=== PATIENT | female | born 1935 | race American Indian/Alaskan Native ===

== ENCOUNTER 2016-11-04 11:11 | Inpatient (IN) | payer MEDICARE ==
[2016-11-04 11:48] LABS: Basophils % (Auto) 1.7 % (0.0-1.8); Eosinophils % (Auto) 8.1 % (0.0-4.3); Hematocrit 31.1 % (30.3-42.9); Hemoglobin 9.7 gm/dl (10.1-14.3); Mean Corpuscular HGB Conc 31 % (30-34); Mean Corpuscular Hemoglobin 24 pg (28-32); Mean Corpuscular Volume 76 fl (79-97); Platelet Count 223 K/mm3 (140-440); Red Blood Count 4.08 M/mm3 (3.65-5.03); Red Cell Distribution Width 17.9 % (13.2-15.2); White Blood Count 5.3 K/mm3 (4.5-11.0)
[2016-11-04 12:01] LABS: Anion Gap 16 mmol/L; BUN/Creatinine Ratio 11.66; Blood Urea Nitrogen 14 mg/dL (7-17); Calcium 8.7 mg/dL (8.4-10.2); Carbon Dioxide 27 mmol/L (22-30); Chloride 100.3 mmol/L (98-107); Glucose 128 mg/dL (65-100); Potassium 3.6 mmol/L (3.6-5.0); Sodium 140 mmol/L (137-145)
[2016-11-04] MEDS ORDERED: NACL 0.9% 1000 ML 1,000 ML ONE (12:46)
--- NOTE | 2016-11-04 13:29 | Emergency Department Report ---
HPI - General Chief Complaint: Dyspnea/Respdistress Time Seen by Provider: 11/04/16 12:50 - HPI HPI: Chief complaint: Patient complains of 2-3 days of dizziness on standing and heart racing. HPI: Patient states sometimes she is sweating and shortness of breath when her heart is racing. Patient states sometimes it's when she is up and moving around and sometimes it's when she is laying in bed at night. Patient states it usually last from 5-6 minutes but last night it was much worse and lasted longer. Patient's had a history of partial colectomy and anemia requiring transfusion. Patient takes an 81 mg aspirin a day and also takes some over-the- counter iron medications. Patient states she's had some black stools. Patient has a history of hypertension but no diabetes or smoking , history of coronary disease or recent travel or recent surgery. Mode of arrival: [private car] Source: [Patient] [old chart] Began: 3 days ago Duration: Intermittent Context: Patient denies any history of coronary artery disease Quality: Pain-free Severity: 0 out of 10 Improved with: See above Worsened with: See above Associated signs and symptoms: See above ED Past Medical Hx - Past Medical History Previous Medical History?: Yes Hx Hypertension: Yes Hx Diabetes: Yes (DIET CONTROL) Additional medical history: ANEMIA - Surgical History Past Surgical History?: Yes Additional Surgical History: COLON RESECTION (MULT POLYPS/BLEEDING) - Social History Smoking Status: Never Smoker Substance Use Type: Prescribed - Medications Home Medications: Home Medications Medication Instructions Recorded Confirmed Last Taken Type Diltiazem HCl [Diltiazem ER] 120 mg PO DAILY 11/04/16 11/04/16 11/03/16 History Triamter/Hctz 37.5-25 mg 1 tab PO QDAY 11/04/16 11/04/16 11/03/16 History [Maxzide-25] ED Review of Systems ROS: Stated complaint: SOB/DIZZINESS Other details as noted in HPI ROS Constitutional: No fever ENT: No uri symptoms Cardiovascular: No chest pain Respiratory: No cough GI: No nausea vomiting or diarrhea : No dysuria frequency or urgency, Skin: No rash Neuro: No focal weakness or numbness Psych: No depression Bridger/lymph: No edema Physical Exam - Physical Exam Vital Signs: Vital Signs 11/04/16 11:29 Temperature 98.3 F Pulse Rate 61 Respiratory 20 Rate Blood Pressure 142/67 O2 Sat by Pulse 100 Oximetry Physical Exam: GENERAL: The patient is well-developed well-nourished. HEENT: Normocephalic. Atraumatic. Extraocular motions are intact. Patient has moist mucous membranes. NECK: Supple. No meningitic signs are noted. There is no adenopathy noted. CHEST/LUNGS: Clear to auscultation. There is no respiratory distress noted. HEART/CARDIOVASCULAR: Regular. There is no tachycardia. There is no gallop rub or murmur. ABDOMEN: Abdomen is soft, nontender. Patient has normal bowel sounds. There is no abdominal distention. Rectal exam shows scant amount of stool which is guaiac positive. SKIN: There is no rash. There is no edema. There is no diaphoresis. NEURO: The patient is awake, alert, and oriented. The patient is cooperative. The patient has no focal neurologic deficits. The patient has normal speech. MUSCULOSKELETAL: There is no tenderness or deformity. There is no limitation range of motion. There is no evidence of acute injury. ED Course Vital Signs 11/04/16 11:29 Temperature 98.3 F Pulse Rate 61 Respiratory 20 Rate Blood Pressure 142/67 O2 Sat by Pulse 100 Oximetry ED Medical Decision Making - Lab Data Result diagrams: 11/04/16 11:39 11/04/16 11:39 Laboratory Tests 11/04/16 11:39 Calcium 8.7 Troponin T < 0.010 - EKG Data -: EKG Interpreted by Me EKG shows normal: sinus rhythm Rate: normal (62) - EKG Data When compared to previous EKG there are: no significant change - Radiology Data Radiology results: report reviewed (NAP) Critical care attestation.: If time is entered above; I have spent that time in minutes in the direct care of this critically ill patient, excluding procedure time. ED Disposition Clinical Impression: GI bleed Qualifiers: GI bleed type/associated pathology: melena Qualified Code(s): K92.1 - Melena Disposition: OP ADMITTED IP TO THIS HOSP Is pt being admited?: Yes Does the pt Need Aspirin: No Condition: Fair Referrals: JOELLE MEZA [Other] - 3-5 Days Time of Disposition: 13:31 (admit to the hospitalist)
--- NOTE | 2016-11-04 13:33 | Admit Criteria Form ---
Admission Criteria Documentation: GASTROINTESTINAL BLEEDING Clinical Indications for Inpatient Care (Place 'X' for any and all applicable criteria): Ongoing inpatient care may be indicated for gastrointestinal bleeding with ANY ONE of the following (4)(20)(21)(22)(23)(24): [ ]I. Active bleeding (eg, fresh voluminous blood in emesis or nasogastric aspirate, or per rectum) [ ]II. Hemodynamic instability [ ]III. Anticoagulation therapy or coagulopathy ((eg, advanced liver disease, irreversible anticoagulation) [ ]IV. Ischemic colitis (22) [ ]V. Endoscopy showing arterial bleeding, adherent clot, nonbleeding visible vessel, varices, flat red spots, ulcer size greater than 2 cm, or portal hypertensive gastropathy [ ]. High-risk low platelet count [X ]VII. Anemia requiring inpatient care as indicated by ANY ONE of the following a)[ ] Cognitive impairment b)[ ] Syncope c)[ ] Heart failure d)[ ] Chest pain e)[X ] Dyspnea f)[ ] Other findings suggesting inadequate perfusion (eg, peripheral or myocardial ischemia, end organ dysfunction) [ ]VIII. High-risk low platelet count [ ]IX. Suspected variceal cause of bleeding as indicated by ANY ONE of the following(27)(28): a)[ ] Known varices b)[ ] Hepatomegaly or splenomegaly c)[ ] Ascites d)[ ] Jaundice or scleral icterus e)[ ] History of liver disease (eg, cirrhosis) f)[ ] Physical findings of portal hypertension (eg, caput medusa) g)[ ] Comorbid disorder indicating risk for portal vein thrombosis (eg , abdominal surgery, sepsis, shock, exchange transfusion, prior umbilical vein catheterization) Extended stay may be needed until ALL of the following are present(20)(38)(47): [ ]a) Hemodynamic stability [ ]b) No evidence of active bleeding (eg, stable Hematocrit) [ ]c) Platelet count, prothrombin time, and partial thromboplastin time acceptable for next level of care [ ]d) Surgical or other acute intervention not needed [ ]e) Oral hydration and diet tolerated The original [facility] [employer] content created by Chris Best has been revised. The portions of the content which have been revised are identified through the use of italic text or in bold, and Chris Best has neither reviewed nor approved the modified material. All other unmodified content is copyright [facility]. Please see references footnoted in the original [facility] edition 2016 Admission Criteria Met: Yes
--- NOTE | 2016-11-04 14:24 | XRay Report ---
ROUTINE CHEST, TWO VIEWS: HISTORY: Shortness of breath. The trachea, heart, mediastinal contour, lung wood and bony thorax are unremarkable. IMPRESSION: Unremarkable chest x-ray.
--- NOTE | 2016-11-04 21:04 | Event Note ---
Date: 11/04/16 See H/p in reports GI Bleed
[2016-11-04] MEDS ORDERED: TYLENOL PO PRN (21:05)
[2016-11-04] MEDS ORDERED: DILAUDID IV PRN (21:05)
[2016-11-04] MEDS ORDERED: MILK OF MAGNESIA PO PRN (21:05)
[2016-11-04] MEDS ORDERED: ZOFRAN IV PRN (21:05)
[2016-11-04] MEDS ORDERED: DULCOLAX PR PRN (21:05)
[2016-11-04] MEDS ORDERED: DILTIAZEM HCL 120 MG PO SCH (21:15)
[2016-11-04] MEDS ORDERED: D5/0.45NS 1,000 ML IV SCH (22:00)
[2016-11-04 22:13] LABS: Hematocrit 30.7 % (30.3-42.9); Hemoglobin 9.6 gm/dl (10.1-14.3)
[2016-11-05] MEDS: PROTONIX 80 MG in NACL 0.9% 100 ML IV SCH ×2 (00:06→10:12)
[2016-11-05] MEDS: MAXZIDE-25 PO SCH ×2 (00:06→15:08)
[2016-11-05 05:42] LABS: Basophils % (Auto) 1.8 % (0.0-1.8); Eosinophils % (Auto) 8.2 % (0.0-4.3); Hematocrit 29.2 % (30.3-42.9); Hemoglobin 9.3 gm/dl (10.1-14.3); Mean Corpuscular HGB Conc 32 % (30-34); Mean Corpuscular Hemoglobin 24 pg (28-32); Mean Corpuscular Volume 76 fl (79-97); Platelet Count 204 K/mm3 (140-440); Red Blood Count 3.85 M/mm3 (3.65-5.03); Red Cell Distribution Width 18.3 % (13.2-15.2); White Blood Count 5.8 K/mm3 (4.5-11.0)
[2016-11-05 06:03] LABS: Albumin 3.8 g/dL (3.9-5); Albumin/Globulin Ratio 1.4 %; Bilirubin,Total 0.3 mg/dL (0.1-1.2); Calcium 8.7 mg/dL (8.4-10.2); Chloride 100.7 mmol/L (98-107); Potassium 3.2 mmol/L (3.6-5.0); Total Protein 6.6 g/dL (6.3-8.2)
--- NOTE | 2016-11-05 08:47 | Gastroenterology Consultation ---
History of Present Illness - Reason for Consult Consult date: 11/05/16 anemia, guaiac positive stool - History of Present Illness Ms. Maguire is an 81 y/o female admitted with reports of a 3 day hx of weakness, dizziness and palpitations. She reports she has had black stools only since starting her OTC PO iron and B 12. She has a hx of chronic anemia and has been seen in the past by Dr. Grey in [place]. 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 She was last seen by Dr. Grey in 2013. Her H/H is stable and she has been significantly lower in past admissions and documented in clinic charting. She denies abdominal pain or N/ V. No hematochezia. She takes a daily baby ASA. Past History Past Medical History: anemia, diabetes, hypertension Past Surgical History: bowel surgery (colectomy 2/2 diverticular bleeding), Other Social history: denies: smoking Family history: no significant family history Medications and Allergies Allergies Allergy/AdvReac Type Severity Reaction Status Date / Time caffeine AdvReac Unknown Verified 09/11/16 14:31 codeine AdvReac HALLUCINATI Verified 09/11/16 14:31 ONS Home Medications Medication Instructions Recorded Confirmed Last Taken Type Diltiazem HCl [Diltiazem ER] 120 mg PO DAILY 11/04/16 11/04/16 11/03/16 History Triamter/Hctz 37.5-25 mg 1 tab PO QDAY 11/04/16 11/04/16 11/03/16 History [Maxzide-25] Active Meds: Active Medications Acetaminophen (Tylenol) 650 mg PO Q4H PRN PRN Reason: Pain MILD(1-3)/Fever >100.5/GR Bisacodyl (Dulcolax) 10 mg MA QDAY PRN PRN Reason: Constipation unrelieved by MOM Diltiazem HCl (Cardizem Cd) 120 mg PO DAILY LILA Hydromorphone HCl (Dilaudid) 0.5 mg IV Q3H PRN PRN Reason: Pain , Severe (7-10) Dextrose/Sodium Chloride (D5/0.45ns) 1,000 mls @ 75 mls/hr IV DIRECT LILA Last Admin: 11/05/16 00:05 Dose: 75 mls/hr Pantoprazole Sodium 80 mg/ (Sodium Chloride) 100 mls @ 10 mls/hr IV Q10H LILA PRN Reason: 8 MG/HR Last Admin: 11/05/16 00:06 Dose: 8 mg/hr, 10 mls/hr Potassium Chloride (Kcl 10meq/100ml) 10 meq in 100 mls @ 100 mls/hr IV Q1H LILA Stop: 11/05/16 11:59 Magnesium Hydroxide (Milk Of Magnesia) 30 ml PO Q4H PRN PRN Reason: Constipation Ondansetron HCl (Zofran) 4 mg IV Q8H PRN PRN Reason: N/V unrelieved by Reglan Triamterene/HCTZ (Maxzide-25) 1 each PO QDAY [facility] Last Admin: 11/05/16 00:06 Dose: 1 each Review of Systems - Review of Systems Constitutional: weakness Cardiovascular: palpitations Neurological: weakness Exam - Constitutional Vital Signs: Temp Pulse Resp BP Pulse Ox 98 F 60 16 144/76 99 11/05/16 08:00 11/05/16 08:00 11/05/16 08:00 11/05/16 08:00 11/05/16 08:00 General appearance: no acute distress - EENT Eyes: EOM intact ENT: hearing intact - Neck Neck: supple - Respiratory Respiratory: bilateral: CTA - Cardiovascular Rhythm: regular Heart Sounds: Present: S1 & S2 Extremities: pulses intact, No edema - Gastrointestinal General gastrointestinal: Present: soft, non-tender, non-distended, normal bowel sounds - Integumentary Integumentary: Present: warm, dry - Neurologic Neurological: alert and oriented x3 - Psychiatric Psychiatric: appropriate mood/affect, cooperative - Labs CBC & Chem 7: 11/05/16 04:53 11/05/16 04:53 Lab Results: Laboratory Results - last 24 hr 11/04/16 11/05/16 11/05/16 21:35 04:53 04:53 WBC 5.8 RBC 3.85 Hgb 9.6 L 9.3 L Hct 30.7 29.2 L MCV 76 L MCH 24 L MCHC 32 RDW 18.3 H Plt Count 204 Lymph % (Auto) 36.6 H [place] % (Auto) 9.1 H Eos % (Auto) 8.2 H Baso % (Auto) 1.8 Lymph # 2.1 [place] # 0.5 Eos # 0.5 H Baso # 0.1 Seg Neutrophils % 44.3 Seg Neutrophils # 2.6 Sodium 141 Potassium 3.2 L Chloride 100.7 Carbon Dioxide 26 Anion Gap 18 BUN 11 Creatinine 1.1 Estimated GFR 58 BUN/Creatinine Ratio 10.00 Glucose 129 H Calcium 8.7 Total Bilirubin 0.3 AST 14 ALT 9 Alkaline Phosphatase 74 Total Protein 6.6 Albumin 3.8 L Albumin/Globulin Ratio 1.4 Assessment and Plan 1. Anemia -H/H stable. Patient has a long hx of chronic anemia and has underwent EGD./ Colonoscopy in the past as well as colectomy for diverticular bleeding. Her H/H has been significantly lower in the past requiring transfusion. Do not feel that her anemia is the cause of her symptoms regarding palpitations/ weakness. She has no abdominal pain or hematochezia. Noted guaiac positive. She has dark stools related to her PO iron intake. OK to DC per GI standpoint with follow up in office in 1-[address] Grey in our [place] Office. Ok to continue ASA if needed at this time. Advance diet.
--- NOTE | 2016-11-05 09:01 | History and Physical Report ---
CHIEF COMPLAINT: Lightheadedness and dizziness on standing for 2-3 days. HISTORY OF PRESENT ILLNESS: An 81-year-old female with history of hypertension, diabetes, and chronic anemia, comes in for lightheadedness and shortness of breath and palpitations for two to three days, especially more on standing. The patient has been noticing that she has been lightheaded and short of breath, especially when standing. Better on lying down. Usually it lasts 5-6 minutes. The patient has had a history of partial colectomy and anemia requiring transfusions. At takes aspirin 81 mg once a day. The patient also has some black stools. No hematemesis. No diarrhea. No vomiting. Her main concern is being lightheaded and shortness of breath on exertion. No fever, no chills. No recent travel. PAST MEDICAL HISTORY: Significant for hypertension, diabetes which is diet controlled, and anemia. PAST SURGICAL HISTORY: Colon resection secondary to multiple polyps bleeding. SOCIAL HISTORY: Does not smoke. No alcohol, no recreational drugs. CURRENT MEDICATIONS: Diltiazem 120 mg daily and Maxzide 25/37.5 mg once a day. REVIEW OF SYSTEMS: CONSTITUTIONAL: No weight loss, no weight gain. No fever, no chills. HEENT: No sore throat. No postnasal drip. No diplopia. No nasal regurgitation of fluids. RESPIRATORY: No wheezing, no cough. CARDIOVASCULAR: No chest pain, some palpitations and shortness of breath on exertion present. GASTROINTESTINAL: Black, red stools, melena. No hematemesis. GENITOURINARY: No dysuria, no flank pain. SKIN: No rashes. MUSCULOSKELETAL SYSTEM: No joint pains. No muscle pains. PSYCH: No depression. HEMATOLOGIC AND LYMPHATIC: No lymphedema, no bruising. PHYSICAL EXAMINATION: GENERAL: Elderly female lying in bed comfortably, in no distress. VITAL SIGNS: Temperature is 98.3, pulse is 61, respirations are 20 and blood pressure 142/67, sats 100%. HEENT: Unremarkable. Pupils equal and reactive. NECK: Supple, no lymphadenopathy, no thyromegaly. LUNGS: Clear to auscultation and percussion. Good air entry. CARDIOVASCULAR: S1, S2 heard. No gallop, no murmur, no rub. Apical impulse in left fifth intercostal space in midclavicular line. ABDOMEN: Soft and benign. No hepatosplenomegaly. No guarding, no rigidity. Hernial orifices are normal. EXTREMITIES: Good pedal pulses. No pedal edema. CENTRAL NERVOUS SYSTEM: Alert and oriented x 4, nonfocal exam. SKIN: Normal. RECTAL: Occult blood positive. LABORATORY DATA: Significant for hemoglobin of 9.7 and hematocrit of 31.1. Electrolytes are normal. Glucose is 128, troponin is less than 0.010. EKG, normal sinus rhythm, heart rate of 62 per minute. ASSESSMENT AND PLAN: 1. Gastrointestinal bleed, possibly from gastritis or peptic ulcer disease. The patient is not on NSAIDs except aspirin 81 mg daily for prophylaxis. Monitor hemoglobin and hematocrit. IV Protonix drip started. GI consult requested. 2. Hypertension. Blood pressure medicines are diltiazem and Maxzide. We will hold if the blood pressure is lower. At present, blood pressure 145/75 3. Diabetes, diet controlled. We will keep a check on the blood glucose levels. 4. DVT prophylaxis, only SCDs. JOB# [id number] VSM/NTS
[2016-11-05] MEDS: KCL 10MEQ/100ML 10 MEQ/100 ML BAG IV SCH ×2 (09:29→11:27)
[2016-11-05] MEDS ORDERED: PROTONIX IV SCH (10:00)
[2016-11-05] MEDS ORDERED: CARDIZEM CD PO SCH (10:00)
--- NOTE | 2016-11-05 11:21 | Consultation ---
History of Present Illness Consult date: 11/05/16 Consult reason: other (Palpitations) History of present illness: This is an 81yr old woman who presented to this hospital with complaints of palpitations intermittent for 2 days. Patient denies shortness of breath, chest pain and dizziness. There was no syncope. She reports mild weakness due to decrease in appetite. Her presenting ECG is benign, a normal sinus rhythm. Patient denies prior history of arrhythmias. There is no history of coronary disease. Cardiac consultation requested for evaluation of palpitations. Past History Past Medical History: anemia, diabetes, hypertension Past Surgical History: bowel surgery (colectomy 2/2 diverticular bleeding), Other Social history: denies: smoking Family history: no significant family history Medications and Allergies Allergies Allergy/AdvReac Type Severity Reaction Status Date / Time caffeine AdvReac Unknown Verified 09/11/16 14:31 codeine AdvReac HALLUCINATI Verified 09/11/16 14:31 ONS Home Medications Medication Instructions Recorded Confirmed Last Taken Type Diltiazem HCl [Diltiazem ER] 120 mg PO DAILY 11/04/16 11/04/16 11/03/16 History Triamter/Hctz 37.5-25 mg 1 tab PO QDAY 11/04/16 11/04/16 11/03/16 History [Maxzide-25] Active Meds: Active Medications Acetaminophen (Tylenol) 650 mg PO Q4H PRN PRN Reason: Pain MILD(1-3)/Fever >100.5/GR Bisacodyl (Dulcolax) 10 mg ND QDAY PRN PRN Reason: Constipation unrelieved by MOM Diltiazem HCl (Cardizem Cd) 120 mg PO DAILY LILA Hydromorphone HCl (Dilaudid) 0.5 mg IV Q3H PRN PRN Reason: Pain , Severe (7-10) Dextrose/Sodium Chloride (D5/0.45ns) 1,000 mls @ 75 mls/hr IV DIRECT LILA Last Admin: 11/05/16 00:05 Dose: 75 mls/hr Potassium Chloride (Kcl 10meq/100ml) 10 meq in 100 mls @ 100 mls/hr IV Q1H LILA Stop: 11/05/16 11:59 Last Admin: 11/05/16 09:29 Dose: 100 mls/hr Magnesium Hydroxide (Milk Of Magnesia) 30 ml PO Q4H PRN PRN Reason: Constipation Ondansetron HCl (Zofran) 4 mg IV Q8H PRN PRN Reason: N/V unrelieved by Reglan Pantoprazole Sodium (Protonix) 40 mg IV BID [facility] Stop: 11/05/16 23:59 Pantoprazole Sodium (Protonix) 40 mg PO BID [facility] Triamterene/HCTZ (Maxzide-25) 1 each PO QDAY [facility] Last Admin: 11/05/16 00:06 Dose: 1 each Physical Examination Vital Signs Temp Pulse Resp BP Pulse Ox 98.3 F 61 20 142/67 100 11/04/16 11:29 11/04/16 11:29 11/04/16 11:29 11/04/16 11:29 11/04/16 11:29 General appearance: no acute distress HEENT: Positive: PERRL Neck: Positive: trachea midline Cardiac: Positive: Reg Rate and Rhythm Lungs: Positive: Normal Breath Sounds Neuro: Positive: Grossly Intact Results 11/05/16 04:53 11/05/16 04:53 Cardiac Enzymes 11/05/16 Range/Units 04:53 AST 14 (5-40) units/L CBC 11/04/16 11/05/16 Range/Units 21:35 04:53 WBC 5.8 (4.5-11.0) K/mm3 RBC 3.85 (3.65-5.03) M/mm3 Hgb 9.6 L 9.3 L (10.1-14.3) gm/dl Hct 30.7 29.2 L (30.3-42.9) % Plt Count 204 (140-440) K/mm3 Lymph # 2.1 (1.2-5.4) K/mm3 [place] # 0.5 (0.0-0.8) K/mm3 Eos # 0.5 H (0.0-0.4) K/mm3 Baso # 0.1 (0.0-0.1) K/mm3 Comprehensive Metabolic Panel 11/05/16 Range/Units 04:53 Sodium 141 (137-145) mmol/L Potassium 3.2 L (3.6-5.0) mmol/L Chloride 100.7 (98-107) mmol/L Carbon Dioxide 26 (22-30) mmol/L BUN 11 (7-17) mg/dL Creatinine 1.1 (0.7-1.2) mg/dL Glucose 129 H (65-100) mg/dL Calcium 8.7 (8.4-10.2) mg/dL AST 14 (5-40) units/L ALT 9 (7-56) units/L Alkaline Phosphatase 74 (35-129) units/L Total Protein 6.6 (6.3-8.2) g/dL Albumin 3.8 L (3.9-5) g/dL EKG interpretations - EKG Sinus rhythms and dysrhythmias: sinus rhythm Assessment and Plan Palpitations Hypertension Chronic anemia Hypokalemia Recommend: Check a magnesium and TSH. Replete potassium. Echo for LVEF assessment.
--- NOTE | 2016-11-05 13:15 | Discharge Summary ---
Providers - Providers Date of Admission: 11/04/16 21:05 Date of discharge: 11/05/16 Attending physician: DAISY MONTGOMERY MD 11/05/16 09:54 Consult to Physician [CONS] Routine Consulting Provider: FREDA DUMONT Reason For Exam: palpitations Place consult to:: cardiology Notified:: yes Phone number called:: on floor Was contact made?: Yes If yes, spoke with:: sabine Time called:: 10:00 Hospitalization Reason for admission: Paroxysmal palpitations Condition: Stable Disposition: DISCHARGED TO HOME OR SELFCARE Time spent for discharge: 31 minutes - Discharge Diagnoses (1) Palpitations Status: Acute Comment: Paroxysmal palpitations (2) Dark stools Status: Acute Comment: Patient is taking iron pills. Core Measure Documentation - Palliative Care Palliative Care/ Comfort Measures: Not Applicable - Core Measures Any of the following diagnoses?: none Exam - Constitutional Vitals: Temp Pulse Resp BP Pulse Ox 98 F 60 16 144/76 99 11/05/16 08:00 11/05/16 08:00 11/05/16 08:00 11/05/16 08:00 11/05/16 08:00 Plan Activity: no restrictions Weight Bearing Status: Full Weight Bearing Diet: low salt, diabetic Follow up with: JOELLE MEZA [Other] - 7 Days
[2016-11-05 15:37] VITALS: BP 112/64
[2016-11-05] MEDS ORDERED: K-DUR PO ONE (16:14)
[2016-11-06] MEDS ORDERED: PROTONIX PO SCH (10:00)
== END 2016-11-05 16:30 | disposition home or self-care (01) | DRG 309 ==
LOC: ED 11:11 → 3A 21:05
PROVIDERS: ADMIT Internal Medicine; ATTEND Internal Medicine
DX: R00.2 Palpitations (principal); K92.1 Melena; I10 Essential (primary) hypertension; E11.9 Type 2 diabetes mellitus without complications; D64.9 Anemia, unspecified; E87.6 Hypokalemia; Z88.6 Allergy status to analgesic agent; Z90.49 Acquired absence of other specified parts of digestive tract
CPT/HCPCS: 36415; 71020; 80048; 80053; 82271; 84484; 85014; 85018; 85025; 86850; 86900; 86901; 93005; 93010; C9113; J3480; J7030

== ENCOUNTER 2017-01-18 17:27 | Emergency (ER) | payer MEDICARE ==
--- NOTE | 2017-01-18 17:56 | Emergency Department Report ---
Entered by ALEJANDRO DIAZ, acting as scribe for KATHARINE TREVIZO NP. Chief Complaint: Weakness Stated Complaint: LOW BLOOD/WEAK Time Seen by Provider: 01/18/17 17:46 - HPI History of Present Illness: 81 y/o female who is non toxic appearing, in no acute distress presents from her PCP for evaluation of anemia today. She reports generalized weakness and dizziness 1 week but denies chest pain, shortness of breath, abdominal pain, N/V /D, GI bleeding, hematuria, headache, vision changes. - ROS Review of Systems: Reports generalized weakness, dizziness. Denies chest pain, shortness of breath, abdominal pain, N/V/D, GI bleeding, hematuria, headache, vision changes. - Exam Vital Signs: Vital Signs 01/18/17 17:35 Temperature 99.7 F H Pulse Rate 79 Respiratory 18 Rate Blood Pressure 111/69 O2 Sat by Pulse 100 Oximetry Physical Exam: Constitutional: Non toxic appearing, NAD. Cardiovascular: Normal rate and rhythm with normal S1/S2 sounds. No edema. Respiratory: No respiratory distress. Lung sounds clear to auscultation bilaterally. Abdomen: Abdomen is non-distended, soft with no tenderness to palpation in all quadrants. No abdominal bruit. MSE screening note: Focused history and physical exam performed. Due to findings the following was ordered: CBC, CMP, Troponin, Type & Screen, PT , PTT, INR, UA, EKG Patient discussed with doctor:: MADELYN BORREGO (continue with plan of care) ED Disposition for MSE Condition: Stable This documentation as recorded by the scribe,ALEJANDRO DIAZ,accurately reflects the service I personally performed and the decisions made by JOSELINE saul MARTIN, JOHNY.
[2017-01-18 18:39] LABS: Eosinophils % (Auto) 5.9 % (0.0-4.3); Hematocrit 23.5 % (30.3-42.9); Hemoglobin 7.1 gm/dl (10.1-14.3); Mean Corpuscular HGB Conc 30 % (30-34); Platelet Count 268 K/mm3 (140-440); Red Blood Count 3.83 M/mm3 (3.65-5.03)
[2017-01-18 18:45] LABS: Mean Corpuscular Hemoglobin 19 pg (28-32); Mean Corpuscular Volume 62 fl (79-97); Red Cell Distribution Width 22.6 % (13.2-15.2)
[2017-01-18 18:48] LABS: Alanine Aminotransferase 9 units/L (7-56); Albumin 4.1 g/dL (3.9-5); Albumin/Globulin Ratio 1.6 %; Alkaline Phosphatase 75 units/L (35-129); Anion Gap 19 mmol/L; BUN/Creatinine Ratio 18.18; Blood Urea Nitrogen 20 mg/dL (7-17); Calcium 9.2 mg/dL (8.4-10.2); Carbon Dioxide 26 mmol/L (22-30); Chloride 102.6 mmol/L (98-107); Glucose 118 mg/dL (65-100); Potassium 4.1 mmol/L (3.6-5.0); Sodium 143 mmol/L (137-145); Total Protein 6.7 g/dL (6.3-8.2)
[2017-01-18 18:49] LABS: INR 1.09 (0.87-1.13); Partial Thromboplastin Time 31.1 Sec. (24.2-36.6)
[2017-01-18 20:42] LABS: Bilirubin,Urine NEG (Negative); Blood,Urine NEG (Negative); Ketones,Urine NEG (Negative); Leukocyte Esterase,Urine LG (Negative); Mucus,Urine FEW /HPF; Nitrite,Urine POS (Negative); Protein,Urine <15 mg/dL mg/dL (Negative); Urobilinogen,Urine < 2.0 mg/dL (<2.0)
[2017-01-18] MEDS ORDERED: NACL 0.9% 500 ML 500 ML IV ONE (20:57)
[2017-01-18] MEDS ORDERED: MACROBID PO ONE (21:23)
--- NOTE | 2017-01-18 21:24 | Emergency Department Report ---
HPI - General Chief Complaint: Weakness Time Seen by Provider: 01/18/17 20:36 - HPI HPI: This is an 81-year-old Afro[place] female presents the emergency department from home, sent in by her PCP, for some blood work today that showed a hemoglobin of 7.1. Patient denies any obvious bleeding. She has some generalized fatigue and/or weakness and she denies any chest pain, shortness of breath, headache, vision change or fever. She has a past medical history of diet controlled diabetes. Her primary care doctor is Dr. Estuardo Aguilar. No recent travel or sick contacts at home. She did not take anything for symptoms prior to presentation. ED Past Medical Hx - Past Medical History Hx Hypertension: Yes Hx Heart Attack/AMI: No Hx Congestive Heart Failure: No Hx Diabetes: Yes (DIET CONTROL) Hx Sickle Cell Disease: No Hx Tuberculosis: No Hx HIV: No Additional medical history: ANEMIA - Surgical History Additional Surgical History: COLON RESECTION (MULT POLYPS/BLEEDING) - Social History Smoking Status: Never Smoker Substance Use Type: None - Medications Home Medications: Home Medications Medication Instructions Recorded Confirmed Last Taken Type Triamter/Hctz 37.5-25 mg 1 tab PO QDAY 11/04/16 01/18/17 01/18/17 History [Maxzide-25] Nitrofurantoin [place]/M-Cryst 100 mg PO Q12HR #14 capsule 01/19/17 Unknown Rx [Macrobid CAP] ED Review of Systems ROS: Stated complaint: LOW BLOOD/WEAK Other details as noted in HPI Constitutional: weakness. denies: diaphoresis Eyes: denies: eye pain, eye discharge, vision change ENT: denies: ear pain, throat pain Respiratory: denies: cough, shortness of breath, wheezing Cardiovascular: denies: chest pain, palpitations Gastrointestinal: denies: abdominal pain, nausea, diarrhea Genitourinary: denies: urgency, dysuria, discharge Musculoskeletal: denies: back pain, joint swelling, arthralgia Skin: denies: rash, lesions Neurological: denies: headache, numbness Physical Exam - Physical Exam Vital Signs: Vital Signs 01/18/17 01/18/17 17:35 20:44 Temperature 99.7 F H 98.3 F Pulse Rate 79 65 Respiratory 18 14 Rate Blood Pressure 111/69 Blood Pressure 131/64 [Left] O2 Sat by Pulse 100 100 Oximetry Physical Exam: GENERAL: The patient is well-developed well-nourished. HEENT: Normocephalic. Atraumatic. Extraocular motions are intact. Patient has moist mucous membranes. Pupils equal reactive to light bilaterally. No nystagmus. Pale conjunctiva. Oropharynx clear. NECK: Supple. Trachea is midline. CHEST/LUNGS: Clear to auscultation. There is no respiratory distress noted. HEART/CARDIOVASCULAR: Regular. There is no tachycardia. There is no gallop rub or murmur. ABDOMEN: Abdomen is soft, nontender. Patient has normal bowel sounds. There is no abdominal distention. SKIN: There is no rash. There is no edema. There is no diaphoresis. NEURO: The patient is awake, alert, and oriented. The patient is cooperative. The patient has no focal neurologic deficits. The patient has normal speech and gait. No pronator drift. No dysmetria. MUSCULOSKELETAL: There is no tenderness or deformity. There is no limitation range of motion. There is no evidence of acute injury. ED Course Vital Signs 01/18/17 01/18/17 17:35 20:44 Temperature 99.7 F H 98.3 F Pulse Rate 79 65 Respiratory 18 14 Rate Blood Pressure 111/69 Blood Pressure 131/64 [Left] O2 Sat by Pulse 100 100 Oximetry ED Medical Decision Making - Lab Data Result diagrams: 01/18/17 17:55 01/18/17 17:55 - EKG Data -: EKG Interpreted by [facility] EKG shows normal: sinus rhythm, axis, intervals, QRS complexes, ST-T waves Rate: normal - EKG Data When compared to previous EKG there are: previous EKG unavailable Interpretation: normal EKG - Medical Decision Making 81-year-old female with some fatigue and nonspecific weakness was sent in by PCP for hemoglobin of 7.1. No source of bleeding seen. Labs done today also show hemoglobin of 7.1. It is probable that the patient's fatigue and weakness is secondary to symptomatic anemia. For this reason the patient was given a 1 unit packed red blood cell transfusion. Labs also show some mild urinary tract infection and the patient was treated with some Macrobid. Vital signs stable throughout her ED course. After the transfusion completed, the patient was reevaluated yet again and says she is feeling improved. Since the patient shows improvement, the rest of the labs and workup is mostly unremarkable, and the patient has good follow-up with primary care, she'll be discharged home. She will return to the ER with any worsening of her symptoms or any acute distress. Critical Care Time: No Critical care attestation.: If time is entered above; I have spent that time in minutes in the direct care of this critically ill patient, excluding procedure time. ED Disposition Clinical Impression: UTI (urinary tract infection) Qualifiers: Urinary tract infection type: acute cystitis Hematuria presence: without hematuria Qualified Code(s): N30.00 - Acute cystitis without hematuria Fatigue Qualifiers: Fatigue type: unspecified Qualified Code(s): R53.83 - Other fatigue Anemia Qualifiers: Anemia type: unspecified type Qualified Code(s): D64.9 - Anemia, unspecified Disposition: DISCHARGED TO HOME OR SELFCARE Is pt being admited?: No Condition: Stable Instructions: Urinary Tract Infection in Women (ED), Iron Rich Diet (ED), Weakness (ED), Fatigue (ED), Anemia (ED) Additional Instructions: Please follow-up with your primary care doctor in the next few days. Return to the emergency department with any worsening of your symptoms or any acute distress. Prescriptions: Nitrofurantoin [place]/M-Cryst [Macrobid CAP] 100 mg PO Q12HR #14 capsule Referrals: PRIMARY CARE, [Primary Care Provider] - 3-5 Days Time of Disposition: 00:29
--- NOTE | 2017-01-18 21:36 | Admit Criteria Form ---
Admission Criteria Documentation: HEMATOLOGY GRG Clinical Indications for Admission to Inpatient Care (Place 'X' for any and all applicable criteria): Hospital admission is needed for appropriate care of the patient because of ANY ONE of the following: [X ]I. Severe anemia indicated by ANY ONE of the following (1)(2) [ ]a) Altered mental status [ ]b) Syncope [X ]c) Other findings suggesting inadequate perfusion [ ]d) Chest pain [ ]e) Exertional dyspnea [ ]f) Treatment with transfusion or volume replacement is ineffective at resolving ANY ONE of the following [A]: [ ]i) Tachycardia for age [ ]ii) Orthostatic vital sign changes as indicated by ANY ONE of the following (3) [ ]1) Fall in SBP of 20 mm Hg or more 1 to 3 minutes after patient sits or stands from recumbent position [ ]2) Fall in DBP of 10 mm Hg or more 1 to 3 minutes after patient sits or stands from recumbent position [ ]II. High-risk febrile neutropenia [B] as indicated by ANY ONE of the following(4)(5) [ ]a) Hemodynamic instability [ ]b) Hypoxemia [ ]c) Tachypnea [ ]d) Altered mental status [ ]e) New onset abdominal pain [ ]f) New onset vomiting or diarrhea [ ]g) Pneumonia [ ]h) Profound neutropenia [C] anticipated to extend for more than 7 days [ ]i) Oral or gastrointestinal mucositis that interferes with swallowing or causes severe diarrhea [ ]j) Evidence of significant focal infection (eg, cellulitis, central line or catheter infection, perirectal abscess) [ ]k) Leukemia or lymphoma induction therapy [ ]l) Bone marrow transplant patient [ ]m) Renal insufficiency (eg, GFR of less than 30 mL/min/1.73m2 (0.5 mL/sec/1.73m2) [ ]n) Severe liver dysfunction (transaminase levels greater than 5 times normal) [ ]o) Platelet count less than 50,000/mm3 (50 x109/L)(6) [ ]p) Multin[employer] Association for Supportive Care in Cancer (MASCC) Risk Index score of < 21 [D] [ ]III. High-risk low platelet count as indicated by ANY ONE of the following(8) (9) [ ]a) Severe or life-threatening bleeding (eg, intracranial, major gastrointestinal, or extensive mucosal bleeding), with any reduced platelet count [ ]b) Platelet count less than 20,000/mm3 (20 x109/L) with any active bleeding [ ]c) Platelet count less than 10,000/mm3 (10 x109/L) with minor purpura or petechiae [ ]d) Platelet count less than 5000/mm3 (5 x109/L) [ ]e) Low platelet count with hemolytic anemia [ ]IV.Active hemolysis with high-risk findings, including ANY ONE of the following(2)(10)(11) [ ]a) Hematocrit less than 25% (0.25) [ ]b) Rapidly progressing anemia [ ]c) Thrombocytopenia(12)(13) [ ]d) Evidence of thrombosis or new renal insufficiency [ ]V. Bleeding disorder with high-risk features (eg, hemophilia, coagulopathy) as indicated by ANY ONE of the following (2)(14)(15) [ ]a) Central nervous system bleeding [ ]b) Retroperitoneal bleeding [ ]c) Retropharyngeal bleeding [ ]d) Gastrointestinal bleeding (22) [ ]e) Purpura [ ]f) Disseminated intravascular coagulation(23) [ ]g) Major trauma [ ]h) Deep laceration [ ]i) Head trauma [ ]j) Any trauma with internal hematoma (eg, retroperitoneal, ocular) [ ]k) Failed outpatient management [ ]. Severe over-anticoagulation or high-risk situation as indicated by ANY ONE of the following(24)(25) [ ]a) Active bleeding [ ]b) International normalized ratio 5 or greater and rapid reversal needed [ ]c) International normalized ratio 9 or greater [ ]VII. Congenital immunodeficiency states with severe morbidity as indicated by ANY ONE of the following(26)(27) [ ]a) Severe infection [ ]b) Bone marrow transplant needed (Also use Medical Oncology GRG) [ ]VIII. Hyperviscosity syndrome with high-risk indicators indicated by ANY ONE of the following (2)(28)(29)(30)(31) [ ]a) Polycythemia vera with hematocrit greater than 60% (0.60) [ ]b) Elevated platelet count associated with thrombosis, bleeding, or life-threatening organ dysfunction [ ]c) Severe signs or symptoms from elevated red cell, white cell, or protein levels, including ANY ONE of the following: [ ]i) Mental status change [ ]ii) Dyspnea [ ]iii) Chest x-ray infiltrate [ ]iv) Visual changes [ ]v) Retinal abnormalities [ ]vi) Neuromuscular symptoms [ ]vii) Suspected ischemia or thrombosis [ ]viii) Bleeding [ ]IX. Methemoglobinemia greater than 15% (0.15) or severe symptoms persist after emergency treatment (32)(33) [ ]X. Spleen trauma with blood loss or other need for acute (medical) treatment (34) [ ]XI. Hematology condition and ALL of the following: [ ]a) Symptom or finding for which emergency and observation care have failed or are not considered appropriate (Also use General Criteria: Observation Care as appropriate) [ ]b) Presence of ANY ONE of the following: [ ]i) A General Admission Criteria [ ]ii) A Pediatric General Admission Criteria The original [facility] [employer] content [facility] by [facility] has been revised. The portions of the content which have been revised are identified through the use of italic text or in bold, and [facility] has neither reviewed nor approved the modified material. All other unmodified content is copyright [facility]. Please see references footnoted in the original [facility] edition 2016
[2017-01-19 00:53] VITALS: BP 142/78
== END 2017-01-19 01:04 | disposition home or self-care (01) ==
LOC: ED 17:27
DX: N30.00 Acute cystitis without hematuria (principal); D64.9 Anemia, unspecified; R53.83 Other fatigue; I10 Essential (primary) hypertension; E11.9 Type 2 diabetes mellitus without complications
CPT/HCPCS: 36415; 80053; 81001; 84443; 84484; 85025; 85610; 85730; 86850; 86900; 86901; 86920; 99283; J7040; P9016

== ENCOUNTER 2018-05-11 11:34 | Emergency (ER) | payer MEDICARE ==
[2018-05-11 11:48] VITALS: BP 119/74
[2018-05-11 13:19] LABS: Basophils # (Auto) 0.1 K/mm3 (0.0-0.1); Basophils % (Auto) 0.8 % (0.0-1.8); Eosinophils # (Auto) 0.2 K/mm3 (0.0-0.4); Eosinophils % (Auto) 2.8 % (0.0-4.3); Hematocrit 32.1 % (30.3-42.9); Hemoglobin 10.4 gm/dl (10.1-14.3); Lymphocytes # (Auto) 3.6 K/mm3 (1.2-5.4); Mean Corpuscular HGB Conc 32 % (30-34); Mean Corpuscular Hemoglobin 26 pg (28-32); Mean Corpuscular Volume 81 fl (79-97); Monocytes # (Auto) 0.5 K/mm3 (0.0-0.8); Monocytes % (Auto) 5.2 % (0.0-7.3); Platelet Count 217 K/mm3 (140-440); Red Blood Count 3.96 M/mm3 (3.65-5.03)
[2018-05-11 13:21] LABS: Red Cell Distribution Width 20.3 % (13.2-15.2)
--- NOTE | 2018-05-11 13:24 | Emergency Department Report ---
ED Recheck HPI - General Chief Complaint: Recheck/Abnormal Lab/Rx Stated Complaint: FAST HEART BEAT Time Seen by Provider: 05/11/18 12:51 Source: patient Mode of arrival: Wheelchair Limitations: No Limitations - History of Present Illness Initial Comments: This is 82-year-old female here reports that she is a patient of Dr. Brennan and her heart rate is fast and when her heart rate is fast she knows she needs some blood. She said she is been anemic although last that she take iron pills and she feels like her blood count is down. She says she could not get into see Dr. Brennan until next week so she came to the hospital because she knows she has she needs a blood transfusion and every time she comes she always gets a blood transfusion. Shortness of breath or chest pain. She just says she is feeling a little bit weak but only because she needs blood. Pain is 0 out of 10. Denies any swelling to her legs, cough, fever and or chills, nausea or vomiting , denies any abdominal back pain. MD Complaint: other ( here for lab recheck) Initial Visit For: other (ports that she is anemic and she think she needs blood ) Returns Today for: other (lab recheck) Context: other (reports her heart rate is elevated and she is here to get her blood work checked and she feels she needs blood transfusion) Associated Symptoms: other (reports fast heart rate). denies: fever, chills, chest pain, shortness of breath, rash, malaise, nasuea, abdominal pain Treatments Prior to Arrival: other (not applicable) - Related Data Home Medications Medication Instructions Recorded Confirmed Last Taken Triamter/Hctz 37.5-25 mg 1 tab PO QDAY 11/04/16 01/18/17 01/18/17 [Maxzide-25] Previous Rx's Medication Instructions Recorded Last Taken Type Nitrofurantoin [place]/M-Cryst 100 mg PO Q12HR #14 capsule 01/19/17 Unknown Rx [Macrobid CAP] Allergies Allergy/AdvReac Type Severity Reaction Status Date / Time Anesthetics - Amide Type Allergy Unknown Verified 01/18/17 17:40 Anesthetics - Joanna Type- Allergy Unknown Verified 01/18/17 17:40 Parabens [Anesthetics - Joanna Type] codeine AdvReac HALLUCINATI Verified 09/11/16 14:31 ONS ED Review of Systems ROS: Stated complaint: FAST HEART BEAT Other details as noted in HPI Constitutional: weakness. denies: chills, fever Eyes: denies: eye pain, eye discharge, vision change ENT: denies: ear pain, throat pain, congestion Respiratory: denies: cough, shortness of breath, SOB with exertion, SOB at rest , stridor, wheezing Cardiovascular: palpitations. denies: chest pain, dyspnea on exertion, edema, syncope, paroxysmal nocturnal dyspnea Gastrointestinal: denies: abdominal pain, nausea, vomiting, diarrhea, constipation, hematemesis, hematochezia Genitourinary: denies: urgency, dysuria, frequency, hematuria, discharge Musculoskeletal: denies: back pain, joint swelling, arthralgia Skin: denies: rash, lesions Neurological: weakness. denies: headache, numbness, paresthesias, confusion, abnormal gait, vertigo ED Past Medical Hx - Past Medical History Previous Medical History?: Yes Hx Hypertension: Yes Hx Heart Attack/AMI: No Hx Congestive Heart Failure: No Hx Diabetes: Yes (DIET CONTROL) Hx Sickle Cell Disease: No Hx Tuberculosis: No Hx HIV: No Additional medical history: ANEMIA - Surgical History Past Surgical History?: Yes Additional Surgical History: COLON RESECTION (MULT POLYPS/BLEEDING) - Family History Family history: hypertension - Social History Smoking Status: Never Smoker Substance Use Type: None - Medications Home Medications: Home Medications Medication Instructions Recorded Confirmed Last Taken Type Triamter/Hctz 37.5-25 mg 1 tab PO QDAY 11/04/16 01/18/17 01/18/17 History [Maxzide-25] Nitrofurantoin [place]/M-Cryst 100 mg PO Q12HR #14 capsule 01/19/17 Unknown Rx [Macrobid CAP] ED Physical Exam - General Limitations: No Limitations General appearance: alert, in no apparent distress - Head Head exam: Present: atraumatic, normocephalic, normal inspection - Eye Eye exam: Present: normal appearance, PERRL, EOMI Pupils: Present: normal accommodation - ENT ENT exam: Present: normal exam, normal orophraynx, mucous membranes moist, TM's normal bilaterally, normal external ear exam - Neck Neck exam: Present: normal inspection, full ROM. Absent: tenderness, meningismus, lymphadenopathy - Respiratory Respiratory exam: Present: normal lung sounds bilaterally. Absent: respiratory distress, wheezes, rales, rhonchi, stridor, chest wall tenderness, accessory muscle use, decreased breath sounds, prolonged expiratory - Cardiovascular Cardiovascular Exam: Present: normal rhythm, bradycardia (59 bpm and asymptomatic), normal heart sounds. Absent: systolic murmur, diastolic murmur - GI/Abdominal GI/Abdominal exam: Present: soft, normal bowel sounds. Absent: distended, tenderness, rebound, rigid, organomegaly, mass - Extremities Exam Extremities exam: Present: normal inspection, full ROM, normal capillary refill , other (No cce. + 2 pulses in all extremities, no neurovascular compromise). Absent: tenderness, pedal edema, joint swelling, calf tenderness - Back Exam Back exam: Present: normal inspection, other (ambulates without any difficulty) . Absent: tenderness, CVA tenderness (R), CVA tenderness (L), muscle spasm, paraspinal tenderness, vertebral tenderness, rash noted - Neurological Exam Neurological exam: Present: alert, oriented X3, normal gait, reflexes normal. Absent: motor sensory deficit - Psychiatric Psychiatric exam: Present: normal affect, normal mood - Skin Skin exam: Present: warm, dry, intact, normal color. Absent: rash ED Course Vital Signs 05/11/18 11:44 Temperature 98.7 F Pulse Rate 59 L Respiratory 16 Rate Blood Pressure 119/74 O2 Sat by Pulse 96 Oximetry - Reevaluation(s) Reevaluation #1: 05/11/18 13:57 Patient stable in no acute distress. Reevaluation #2: 05/11/18 14:00 EKG sinus bradycardia at [address] abnormalities. ED Recheck MDM - Medical Decision Making This is a 82-year-old female here reports that she thinks she is anemic and needed a blood transfusion. She says she was having increase in her heart rate and she came to the hospital because she could not get in her doctor until next week. Patient was seen and examined by myself and her physical exam is normal. She had EKG done which shows sinus bradycardia at 59. Her apical heart rate is at 62 bpm. Pt had labs to include CBC done and her values are normal to include her H&H, CMP stable. I discussed lab work with patient and also diagnosis and treatment plan. Patient is an iron tablets and told her to continue taking this and to call Dr. Brennan's office to schedule an appointment to see him on 12/2017. Patient voiced understanding to surgical referral signs she is afebrile and she is in no pain and says she is feeling better. Critical care attestation.: If time is entered above; I have spent that time in minutes in the direct care of this critically ill patient, excluding procedure time. ED Disposition Clinical Impression: Encounter for laboratory examination, Weakness, H/O iron deficiency anemia Disposition: TO HOME OR SELFCARE Is pt being admited?: No Does the pt Need Aspirin: No Condition: Stable Instructions: Weakness (ED), Iron Supplements (By mouth), Iron Rich Diet (ED) Additional Instructions: Your laboratory results to include your hemoglobin and hematocrit were within normal limits today. Please call Dr. Brennan office to schedule an appointment for follow-up visit. Continue to take your iron tablets as prescribed by your primary care physician. Continue to eat foods that are rich and iron Referrals: PRIMARY MD BIRGIT [Primary Care Provider] - 05/16/18
[2018-05-11 13:43] LABS: Alanine Aminotransferase 13 units/L (7-56); Albumin 4.2 g/dL (3.9-5); BUN/Creatinine Ratio 20; Blood Urea Nitrogen 18 mg/dL (7-17); Calcium 9.1 mg/dL (8.4-10.2); Hemolysis Index 15
== END 2018-05-11 14:10 | disposition home or self-care (01) ==
LOC: ED 11:34
DX: Z00.01 Encounter for general adult medical examination with abnormal findings (principal); R53.1 Weakness; D50.9 Iron deficiency anemia, unspecified
CPT/HCPCS: 36415; 80053; 85025; 93005; 93010; 99283

== ENCOUNTER 2018-10-03 15:06 | Emergency (ER) | payer MEDICARE ==
[2018-10-03] MEDS ORDERED: APRESOLINE IV ONE (15:35)
[2018-10-03 16:13] LABS: Hematocrit 36.6 % (30.3-42.9); Hemoglobin 12.1 gm/dl (10.1-14.3); Mean Corpuscular HGB Conc 33 % (30-34); Mean Corpuscular Volume 83 fl (79-97); Red Cell Distribution Width 16.8 % (13.2-15.2)
[2018-10-03 16:17] LABS: Platelet Count 185 K/mm3 (140-440)
[2018-10-03 16:26] LABS: Alanine Aminotransferase 12 units/L (7-56); Albumin 3.9 g/dL (3.9-5); BUN/Creatinine Ratio 11; Blood Urea Nitrogen 10 mg/dL (7-17); Calcium 9.4 mg/dL (8.4-10.2); Hemolysis Index 8
--- NOTE | 2018-10-03 16:40 | Emergency Department Report ---
HPI - General Chief Complaint: Abdominal Pain Time Seen by Provider: 10/03/18 15:22 - HPI HPI: 82-year-old female presents to the emergency department with complaint of right lower quadrant abdominal and pelvic pain and suspicion of hernia. The patient also says that the pain runs down her right leg. She's been having this abdominal pain for a couple of months but it comes and goes but she says it has gotten progressively worse over the past few days. She denies any problems with bowel or bladder, fever, nausea or vomiting. Patient says that she was diagnosed with a hernia in the past and was referred to a surgeon by her primary care physician, Dr. Brennan, but she has not yet seen them. She also has a past mental history of diet-controlled diabetes, hypertension, anemia. She has a surgical history of previous colon resection, colostomy and reversal. ED Past Medical Hx - Past Medical History Previous Medical History?: Yes Hx Hypertension: Yes Hx Heart Attack/AMI: No Hx Congestive Heart Failure: No Hx Diabetes: Yes (DIET CONTROL) Hx Sickle Cell Disease: No Hx Tuberculosis: No Hx HIV: No Additional medical history: ANEMIA - Surgical History Past Surgical History?: Yes Additional Surgical History: COLON RESECTION (MULT POLYPS/BLEEDING) - Social History Smoking Status: Never Smoker Substance Use Type: None - Medications Home Medications: Home Medications Medication Instructions Recorded Confirmed Last Taken Type RX: Triamter/Hctz 37.5-25 mg 1 tab PO QDAY 11/04/16 01/18/17 01/18/17 History [Maxzide-25] Nitrofurantoin [place]/M-Cryst 100 mg PO Q12HR #14 capsule 01/19/17 Unknown Rx [Macrobid CAP] ED Review of Systems ROS: Stated complaint: RT HIP PAIN Other details as noted in HPI Comment: All other systems reviewed and negative Constitutional: denies: chills, fever Eyes: denies: eye pain, eye discharge, vision change ENT: denies: ear pain, throat pain Respiratory: denies: cough, shortness of breath, wheezing Cardiovascular: denies: chest pain, palpitations Gastrointestinal: abdominal pain. denies: nausea, vomiting Genitourinary: denies: dysuria, discharge Musculoskeletal: denies: back pain, joint swelling Skin: denies: rash, lesions Neurological: denies: headache, weakness Physical Exam - Physical Exam Vital Signs: Vital Signs 10/03/18 15:11 Temperature 98.1 F Pulse Rate 76 Respiratory 20 Rate Blood Pressure 194/116 O2 Sat by Pulse 98 Oximetry Physical Exam: GENERAL: The patient is well-developed well-nourished. HEENT: Normocephalic. Atraumatic. Patient has moist mucous membranes. EYES: Extraocular motions are intact. Pupils are equal and reactive to light bilaterally. NECK: Supple. Trachea is midline. CHEST/LUNGS: Clear to auscultation. There is no respiratory distress noted. HEART/CARDIOVASCULAR: Regular. There is no tachycardia. There is no obvious murmur. ABDOMEN: Abdomen is soft. She has right lower quadrant abdominal and inguinal tenderness to palpation. No guarding. Patient has normal bowel sounds. There is no abdominal distention. SKIN: Skin is warm and dry. NEURO: The patient is awake, alert, and oriented. The patient is cooperative. The patient has no focal neurologic deficits. The patient has normal speech. MUSCULOSKELETAL: There is right hip tenderness to palpation. No obvious deformity. There is no limitation range of motion. There is no evidence of acute injury. ED Course Vital Signs 10/03/18 15:11 Temperature 98.1 F Pulse Rate 76 Respiratory 20 Rate Blood Pressure 194/116 O2 Sat by Pulse 98 Oximetry ED Medical Decision Making - Lab Data Result diagrams: 10/03/18 15:49 10/03/18 15:49 - Radiology Data Radiology results: report reviewed, image reviewed interpreted by me: X-ray of the right hip does not show any fracture, dislocation or any acute process. X-ray of the abdomen shows nonspecific nonobstructive bowel gas. PROCEDURE: CT abdomen and pelvis without contrast. TECHNIQUE: Computerized axial tomography of the abdomen and pelvis was performed without intravenous contrast. This study is performed without intravascular contrast material and its sensitivity for abdominal and pelvic pathology, including neoplasms, inflammation, abscess, free fluid, thrombosis, arterial dissection and infarction, is reduced compared with a contrast enhanced study. HISTORY: abd/pelvic pain, inguinal hernia COMPARISON: No prior studies are available for comparison. FINDINGS: There is a small amount of peripheral opacity in the lingula, right middle lobe and both lower lobes. This probably represents pleural parenchymal scarring. There are no pleural effusions. The heart size is normal. The liver, pancreas and spleen are grossly normal. The gallbladder is distended. There is no biliary dilatation. The adrenal glands are not enlarged. Both kidneys appear normal in size and configuration. The abdominal aorta has a normal caliber. There is no retroperitoneal adenopathy. The unopacified gastrointestinal tract is unremarkable. 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 There is an umbilical hernia containing a loop of small bowel. There are no signs of intestinal obstruction. The bladder, uterus and adnexal regions are unremarkable. There is no evidence of an inguinal hernia. There is an enlarged right-sided sacral foramen at the S2 level. 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 There is degenerative change in the lumbar spine. IMPRESSION: Probable scarring in both lung bases. 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 Umbilical hernia containing small bowel. 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 Transcribed By: MRM Dictated By: ALTAGRACIA ELLIOTT MD Electronically Authenticated By: ALTAGRACIA ELLIOTT MD Signed Date/Time: 10/03/181947 - Medical Decision Making The patient presents with complaint of some right lower quadrant abdominal pain and inguinal pain with concern for a hernia and with pain radiating down the ri ght leg and hip. Patient does have some tenderness to palpation to these areas. Labs have been unremarkable. CT scan of the abdomen and pelvis shows an umbilical hernia. No inguinal hernia and otherwise no other etiology of the patient's pain or complaints. Patient also presented with very elevated blood pressure but it came down with a dose of blood pressure medication and some pain control. My colleague, Dr. Cordero, who was gracious enough to evaluate the patient and had a discussion with the general surgeon and the patient was safe for outpatient follow-up regarding her umbilical hernia which does not show any signs of any incarceration or strangulation. X-ray of the right hip does not show any fracture, discoloration or any acute process. She's also been given a referral for orthopedist. She will return to the ER with any worsening of her symptoms or any acute distress. - Differential Diagnosis hernia, osteoarthritis, colitis, sciatica Critical Care Time: No Critical care attestation.: If time is entered above; I have spent that time in minutes in the direct care of this critically ill patient, excluding procedure time. ED Disposition Clinical Impression: Umbilical hernia, Right hip pain Disposition: TO HOME OR SELFCARE Is pt being admited?: No Condition: Good Instructions: Umbilical Hernia (ED), Abdominal Pain (ED), Arthralgia (ED) Additional Instructions: Please follow-up with your primary care physician in the next few days. I'm giving you a referral for a local general surgeon, Dr. Bello, to follow-up r egarding your umbilical hernia. I'm also giving you a referral for a local orthopedist, Dr. Morrison, for follow-up regarding your hip pain. Return to the emergency Department with any worsening of your symptoms with any acute distress. Referrals: BIMAL BELLO MD [Staff Physician] - 3-5 Days PRIMARY CAREMD [Primary Care Provider] - 3-5 Days GALINA MORRISON MD [Staff Physician] - 3-5 Days
[2018-10-03] MEDS ORDERED: ULTRAM PO ONE (16:57)
[2018-10-03] MEDS ORDERED: NORMODYNE IV ONE (16:58)
[2018-10-03 16:59] LABS: Basophils % (Manual) 0 % (0.0-1.8); RBC Morphology Normal; Total Cells Counted 100
[2018-10-03] MEDS ORDERED: NACL 0.9% 1000 ML 1,000 ML IV ONE (17:41)
--- NOTE | 2018-10-03 18:11 | XRay Report ---
FINAL REPORT PROCEDURE: Abdomen. TECHNIQUE: Supine and upright views. HISTORY: Abdominal pain. COMPARISON: No prior studies are available for comparison. FINDINGS: The bowel gas pattern is normal. There are no signs of obstruction. There is no evidence of pneumoper itoneum. The soft tissues are unremarkable. There are degenerative changes in the lumbar spine. There is some abnormal peripheral opacity in the left lung base. This may represent pleural scarring. IMPRESSION: No evidence of acute abdominal disease.
[2018-10-03] MEDS ORDERED: HEPARIN/ 0.45% NACL-25,000 UNIT/500 ML 25,000 UNIT/500 ML BAG ONE (19:40)
[2018-10-03] MEDS ORDERED: HEPARIN ONE (19:41)
--- NOTE | 2018-10-03 19:48 | Cat Scan Report ---
FINAL REPORT PROCEDURE: CT abdomen and pelvis without contrast. TECHNIQUE: Computerized axial tomography of the abdomen and pelvis was performed without intravenous contrast. This study is performed without intravascular contrast material and its sensitivity for ab dominal and pelvic pathology, including neoplasms, inflammation, abscess, free fluid, thrombosis, art erial dissection and infarction, is reduced compared with a contrast enhanced study. HISTORY: abd/pelvic pain, inguinal hernia COMPARISON: No prior studies are available for comparison. FINDINGS: There is a small amount of peripheral opacity in the lingula, right middle lobe and both lower lobes. This probably represents pleural parenchymal scarring. There are no pleural effusions. The heart siz e is normal. The liver, pancreas and spleen are grossly normal. The gallbladder is distended. There i s no biliary dilatation. The adrenal glands are not enlarged. Both kidneys appear normal in size and configuration. The abdominal aorta has a normal caliber. There is no retroperitoneal adenopathy. The unopacified gastrointestinal tract is unremarkable. 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 There is an umbilical hernia containing a loop of small bowel. There are no signs of intes tinal obstruction. The bladder, uterus and adnexal regions are unremarkable. There is no evidence of an inguinal hernia. There is an enlarged right-sided sacral foramen at the S2 level. This is likely s econdary to a large Tarlov cyst. There is degenerative change in the lumbar spine. IMPRESSION: Probable scarring in both lung bases. 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 Umbilical hernia containing small bowel. 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
--- NOTE | 2018-10-03 21:12 | XRay Report ---
FINAL REPORT PROCEDURE: Right hip. TECHNIQUE: AP pelvis, cross-table lateral view of the right hip. HISTORY: Right hip pain. COMPARISON: No prior studies are available for comparison. FINDINGS: The bones appear intact without fracture or dislocation. The hip joint appears normal. The soft tissu es are unremarkable. IMPRESSION: Normal study.
[2018-10-03 21:28] LABS: Bacteria,Urine 1+ /HPF (Negative); Bilirubin,Urine NEG (Negative); Blood,Urine NEG (Negative); Color,Urine Yellow (Yellow); Mucus,Urine FEW /HPF; Urobilinogen,Urine < 2.0 mg/dL (<2.0)
--- NOTE | 2018-10-03 22:10 | Event Note ---
Patient reassessed by myself and currently is laying in the bed comfortable in no acute distress. Patient's CT findings as well as the patient's presentation was discussed with Dr. Bello. Patient was reassessed and had no known palpation or irreducible hernia present in her umbilical region. This being the case Dr. Bello states the patient can follow-up as an outpatient in clinic. Patient's x-ray of the hip shows no acute process either. Patient to be discharged to follow-up as an outpatient.
[2018-10-03 22:35] VITALS: BP 128/73
== END 2018-10-03 22:50 | disposition home or self-care (01) ==
LOC: ED 15:06
DX: K42.9 Umbilical hernia without obstruction or gangrene (principal); M25.551 Pain in right hip; I10 Essential (primary) hypertension; E11.9 Type 2 diabetes mellitus without complications
CPT/HCPCS: 36415; 73502; 74019; 74176; 80053; 81001; 85007; 85025; 96374; 99285; J0360; J1644; J7030